=== PATIENT | female | born 1960 | race Caucasian/White ===

== ENCOUNTER 2021-10-16 10:26 | Day surgery (SDC) | payer OTHER, SELFPAY ==
[2021-09-07 13:49] VITALS: BMI 27.3
[2021-10-16 10:31] VITALS: BP 139/87; PULSE 96; RESP 17; TEMP 36.6; O2SAT 96
[2021-10-16] MEDS: Lactated Ringers 1,000 ML 50 ML IVCONT (10:49)
--- NOTE | 2021-10-16 11:05 | HO.ANESPROP2 ---
HPI - Anesthesia Eval Consult details Narrative: Screening Colonoscopy [facility] Past Medical History Medical History Breast cancer Elevated cholesterol HTN (hypertension) Hypothyroid Sleep apnea Family History Family history of problems with anesthesia: No Surgical History Surgical History H/O colonoscopy History of excision of pilonidal cyst History of Problems with Anesthesia: No Social History Social History Patient Tobacco Use Status: Former Tobacco user Tobacco use type: Cigarette Advance Directives: No Advance Directives Information Provided: Yes Advance Directives on File: No Meds Allergies Allergy/AdvReac Type Severity Reaction Status Date / Time No Known Allergies Allergy Unverified 04/24/20 16:01 [No Known Allergies*] Active Medications: Current Medications Lactated Ringer's (Lr) 1,000 mls @ 50 mls/hr IVCONT .Q20H FRANDY Last Admin: 10/16/21 10:49 Dose: 50 mls/hr Documented by: Sodium Biphosphate/Sodium Phosphate (Sodium Phosphate,Foard-Dibasic 133 Ml Enema) 133 ml MD ONCE PRN PRN Reason: Poor Colonoscopy Prep Results Home Medications Medication Instructions Recorded Confirmed Last Taken Type atorvastatin 10 mg tablet 1 tab PO DAILY 09/07/21 09/07/21 Unknown History fenofibrate nanocrystallized 48 mg 1 tab PO DAILY 09/07/21 09/07/21 Unknown History tablet fluoxetine 20 mg tablet 1 tab PO DAILY 09/07/21 09/07/21 Unknown History hydrochlorothiazide 25 mg tablet 1 tab PO DAILY 09/07/21 09/07/21 Unknown History levothyroxine 88 mcg tablet 1 tab PO DAILY 09/07/21 09/07/21 10/16/21 History ondansetron 4 mg disintegrating 4 mg PO BEDTIME 09/07/21 09/07/21 Unknown History tablet trazodone 50 mg tablet 0.5 tab PO BEDTIME PRN 09/07/21 09/07/21 Unknown History valsartan 320 mg tablet 1 tab PO DAILY 09/07/21 09/07/21 10/16/21 History Exam Exam Date and Time: October 16, 2021 1105 Height,Weight and Vital Signs: Height 5 ft 6.5 in Weight 78.018 kg Last Vital Signs Temp 98 F 10/16/21 10:31 Pulse 96 10/16/21 10:31 Resp 17 10/16/21 10:31 BP 139/87 10/16/21 10:31 Pulse Ox 96 10/16/21 10:31 Airway Mallampati Class: II TM Dist: >3cm Neck ROM: Full Loose/Missing/Broken Teeth: No Heart: [id number] Lungs: CTA b/l Assessment and Plan Assessment Anesthesia Assessment: Anesthesia Plan Discussed and Chart Reviewed Final Anesthetic Review Family History of Problems with Anesthesia: No History of Problems with Anesthesia: No NPO: Yes ASA Class: II Final Preanesthetic Review: No Changes in Pt Med Stat, Meds/Allgs Chart Reviewed, Consent Obtained/Reviewed and Anes Risks/Benef Reviewed Patient Risk: Intermediate Procedure Risk: Low Assessment/Block/Sedation in SS: Assess/Block/Sedation-SS Anesthetic Plan Anesthetic Plan: MAC: and Agree w/ Assess. and Plan Disposition: Standard PACU
[2021-10-16 12:50] VITALS: BP 128/83; PULSE 91; RESP 16; TEMP 36.3; O2SAT 97
--- NOTE | 2021-10-16 12:51 | P.BOP_ITS ---
Brief Operative Note Date of Service: 10/16/21 Pre-op diagnosis: Screening Post-op diagnosis: other (Colon polyps) Procedure: Colonoscopy to cecum with bx/removal of polyps, and hot snare polypectomy x 2 in the transverse colon Surgeon: Félix Mendez Anesthesia: MAC Was an Plant Engineering Supervisor used for this Procedure?: No Estimated blood loss (mL): 2.0 Pathology: other (A. Cecal polyp B. Transverse colon polyps) Condition: stable Disposition: PACU
[2021-10-16 13:05] VITALS: BP 135/88; PULSE 78; RESP 18; O2SAT 97
[2021-10-16 13:24] VITALS: TEMP 36.3
--- NOTE | 2021-10-16 13:41 | OP_ITS ---
SURGEON: Félix Mendez MD INDICATIONS: The patient presents for evaluation of colorectal cancer screening and personal history of tubular adenoma of the colon. Full consent was obtained from her for this, including risks of bleeding and perforation. PREOPERATIVE DIAGNOSIS: POSTOPERATIVE DIAGNOSIS: PROCEDURE PERFORMED: Colonoscopy to the cecum with biopsy and removal of polyps, and hot snare polypectomies. ESTIMATED BLOOD LOSS: COMPLICATIONS: ANESTHESIA: Monitored anesthesia care. ASSISTANTS: SPECIMENS: PREOPERATIVE DIAGNOSES: Colorectal cancer screening, family history of colon cancer, personal history of tubular adenoma of the colon. POSTOPERATIVE DIAGNOSES: Colorectal cancer screening, family history of colon cancer, personal history of tubular adenoma of the colon, colon polyps, diverticulosis, and internal hemorrhoids. DESCRIPTION OF PROCEDURE: The patient was placed in the left lateral decubitus position. The digital rectal exam revealed no abnormalities. The Olympus video pediatric colonoscope was entered into the rectum and advanced easily to the cecum. Once in the cecum, I did identify normal-appearing cecal pouch other than a 3 or 4 mm polyp, which was biopsied and completely removed with cold biopsy forceps. The remainder of the cecum, including the appendiceal orifice, appeared normal. The ileocecal valve appeared normal. There was transillumination of light deep in the right lower quadrant. Scope was then slowly withdrawn assessing all mucosal surfaces carefully. Preparation was excellent. In the transverse colon, there were 3 polyps. One of these was approximately 3 or 4 mm in size and was biopsied and completely removed with cold biopsy forceps. The other 2 polyps were between 6 and 8 mm in diameter and were each removed with a hot snare polypectomy and recovered by suction. Both polypectomy sites appeared clean, without any sign of residual polyp, nor bleeding. I did not visualize any other polyps, colitis, nor angiodysplasia. There was a mild amount of sigmoid diverticulosis. In the rectum, scope was retroflexed visualizing internal hemorrhoids, but no other pathology. The rectal mucosa appeared normal. The scope was straightened and withdrawn from the patient. She tolerated the procedure well and was returned to the recovery area in stable condition. IMPRESSION: 1. Colon polyps, status post hot snare polypectomy and biopsy with removal of polyps. 2. Diverticulosis. 3. Internal hemorrhoids. PLAN: The results of the pathology will be checked. I would recommend a repeat colonoscopy in 5 years for further screening and surveillance. She will otherwise see me on a p.r.n. basis. MD AYAZ Rosario/ZAFAR / [id number]
== END 2021-10-16 13:50 | disposition home or self-care (01) ==
PROVIDERS: PCP Internal Medicine; Visit Provider Internal Medicine
PROC: 0DJD8ZZ Inspection of Lower Intestinal Tract, Via Natural or Artificial Opening Endoscopic (ICD-10-PCS; CPT 45378; principal; 2021-10-16 11:30)
DX: Z12.11 Encounter for screening for malignant neoplasm of colon (principal); Z86.010 Personal history of colon polyps; Z80.0 Family history of malignant neoplasm of digestive organs; D12.3 Benign neoplasm of transverse colon; K63.5 Polyp of colon; K57.30 Diverticulosis of large intestine without perforation or abscess without bleeding; K64.8 Other hemorrhoids; I10 Essential (primary) hypertension; E78.5 Hyperlipidemia, unspecified; E03.9 Hypothyroidism, unspecified; Z79.82 Long term (current) use of aspirin; Z79.899 Other long term (current) drug therapy; Z85.3 Personal history of malignant neoplasm of breast; Z90.13 Acquired absence of bilateral breasts and nipples; Z92.21 Personal history of antineoplastic chemotherapy; Z92.3 Personal history of irradiation; Z87.891 Personal history of nicotine dependence
CPT/HCPCS: 45385; 45380; 88305